=== PATIENT | male | born 1965 | race Caucasian/White ===

== ENCOUNTER 2019-07-03 11:56 | Day surgery (SDC) | payer OTHER ==
[2019-06-30 15:24] VITALS: BMI 34.8
[2019-07-03 13:18] LABS: BASO % 0.4 % (0-2.0); EOS % 1.5 % (0-4.5); HEMATOCRIT 47.5 % (35.4-49); HEMOGLOBIN 16.2 GM/dL (11.7-16.9); LYMPH % 21.9 % (8-40); MCH 29.4 pg (25.7-33.7); MCHC 34.1 g/dl (32.0-35.9); MEAN CELL VOLUME 86.2 fl (80-96); MEAN PLT VOLUME 9.7 fl (7.5-11.1); MONO % 7.7 % (3.8-10.2); NEUT % 68.5 % (42.8-82.8); PLATELET COUNT 169 K/MM3 (134-434); RBC 5.52 M/mm3 (4.00-5.60); RDW 13.9 % (11.9-15.9)
[2019-07-03 13:21] LABS: INR 0.92 (0.83-1.09); PROTHROMBIN TIME (PATIENT) 10.8 SEC (9.7-13.0)
[2019-07-03] MEDS ORDERED: ACETAMINOPHEN 325 MG TABLET (FP) PO ONE ×2 (15:11→15:43)
[2019-07-03 15:28] VITALS: TEMP 97.9
[2019-07-03] MEDS ORDERED: ACETAMINOPHEN 325 MG TABLET (FP) ONE (15:43)
[2019-07-03 16:10] LABS: CSF APPEARANCE CLEAR; CSF COLOR COLORLESS
[2019-07-03 16:11] LABS: CSF WBC 5
[2019-07-03 17:29] VITALS: BP 161/79; PULSE 79
[2019-07-03 17:29] LABS: BF GLUCOSE (CSF ONLY) 58 mg/dL (40-70)
[2019-07-04 04:07] LABS: IGA IMMUNOGLOBULIN 204 mg/dL (90-386); IGM QN SERUM 198 mg/dL (20-172)
--- NOTE | 2019-07-04 15:50 | PATH ---
Cytology Non-Gynecological Report Patient Name: ALEJANDRA HILLS Med. Rec. #: [id number] /Age/Gender: 1965 (Age: 53) / M Account: [id number] Location: RADIOLOGY INTER Taken: 07/03/2019 Received: 07/04/2019 Reported: 07/04/2019 Physicians: Barney Miramontes M.D. 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 NEGATIVE FOR MALIGNANT CELLS. RARE DEGENERATED CELLS AND LYMPHOCYTES PRESENT Electronically Signed Prachi Eldridge M.D. Gross Description Approximately 4 cc of clear fluid received fresh. Two cytofunnels prepared and Pap stained
[2019-07-05 13:12] LABS: IgG Ab 23 kDa Band Absent (.); IgG Ab 28 kDa Band Absent (.)
[2019-07-05 15:11] LABS: ALBUMIN SERUM 4.4 g/dL (3.8-4.9); CSF IGG INDEX 0.5 (0.0-0.7); IGG QN CSF 4.2 mg/dL (0.0-8.6); IGG QN IMMUNOGLOBULIN 895 mg/dL (700-1600); IGG/ALB RATIO CSF 0.11 (0.00-0.25)
[2019-07-05 16:07] LABS: MYELIN BASIC PROTEIN,CSF 6.2 ng/mL (0.0-4.7)
--- NOTE | 2019-07-05 16:08 | PATH ---
Surgical Pathology Report Patient Name: ALEJANDRA HILLS [facility]. Rec. #: [id number] /Age/Gender: 1965 (Age: 53) / M Account: [id number] Location: RADIOLOGY INTER Taken: 07/03/2019 Received: 07/03/2019 Reported: 07/05/2019 Physicians: Barney Miramontes M.D. 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 Comprehensive Flow [facility] [place] ([id number]) shows the following: Interpretation: No atypical flow cytometric findings seen Phenotype: Lymphocytes include polyclonal B cells, NK cells and immunophenotypically normal CD4+ and CD8+ T cells in normal proportions. No evidence of a clonal lymphoid expansion. Granulocytes are immunophenotypically mature. B. Lymphoproliferative flow panel (CSF) performed and interpreted at [place], [place] ([id number]) shows the following: Interpretation: Paucicellular limited study Comment: The low numbers of cells in sample limit interpretation. Correlation with morphologic features is essential to assess adequacy of sampling. Phenotype: The specimen is markedly paucicellular (approximately 900 events for evaluation). The few lymphocytes in sample include rare immunophenotypically normal CD4+ and CD8+ T cells. B cells are too few to assess clonality by light-chain staining. See [facility] report for additional details. Electronically Signed Parker Nolan M.D. Gross Description Received are 2 green top tubes of peripheral blood and 1 tube of CSF which are sent to [facility]. /07/04/2019 saudi/07/04/2019
[2019-07-07 11:08] LABS: LYME PCR CSF Negative (Negative)
== END 2019-07-03 17:05 | disposition home or self-care (01) ==
LOC: JRADIR 11:56
PROVIDERS: ATTEND Psychiatry & Neurology Neurology
PROC: 009U3ZX Drainage of Spinal Canal, Percutaneous Approach, Diagnostic (ICD-10-PCS; principal; 2019-07-03)
DX: D43.1 Neoplasm of uncertain behavior of brain, infratentorial (principal)
CPT/HCPCS: 36415; 62270; 62272; 82164; 82784; 82787; 82945; 83873; 83916; 84157; 85025; 85610; 86480; 86617; 86618; 87476; 87899; 88108; 88300-TC